=== PATIENT | male | born 1945 | race Hispanic/Latino ===

== ENCOUNTER → 2022-02-23 | Outpatient (CLI) | payer MEDICARE, BC | END | disposition home or self-care (01) | LOC: RAH 09:44 | PROVIDERS: ATTEND Internal Medicine | DX: K57.90 Diverticulosis of intestine, part unspecified, without perforation or abscess without bleeding (principal); R31.21 Asymptomatic microscopic hematuria; M47.815 Spondylosis without myelopathy or radiculopathy, thoracolumbar region; N50.89 Other specified disorders of the male genital organs | CPT/HCPCS: 74176 ==